=== PATIENT | male | born 1970 | race Caucasian/White ===

== ENCOUNTER 2021-03-11 10:34 | Outpatient (REF) | payer OTHER, SELFPAY ==
[2021-03-11 14:04] LABS: MANUAL DIFF FLAG NO
[2021-03-11 14:10] LABS: Basophils Percent Auto 0.5 % (0-2); Eosinophils Absolute Auto 0.2 X10*3/uL (0.0-0.4); Eosinophils Percent Auto 3.7 % (0-4); Hemoglobin 13.9 g/dl (14.0-18.0); Imm Gran Abs Auto 0.01 X10*3/uL (0.00-0.03); Imm Gran Pct Auto 0.2 % (0.0-0.4); Lymphocytes Absolute Auto 1.9 X10*3/uL (1.2-4.9); Mean Corpuscular HGB Conc 32.3 g/dl (31.0-36.0); Mean Corpuscular Hemoglobin 28.5 pg (27.0-33.0); Mean Corpuscular Volume 88.1 fL (80-98); Mean Platelet Volume 11.3 fL (9.4-12.4); Monocytes Absolute Auto 0.5 X10*3/uL (0.1-1.2); Monocytes Percent Auto 8.5 % (2-11); Neutrophils Absolute Auto 3.2 X10*3/uL (2.0-8.3); Neutrophils Percent Auto 54.1 % (45-73); Platelet Count 298 X10*3/uL (160-400); Red Blood Count 4.88 X10*6/uL (4.60-5.80); Red Cell Distribution Width 14.2 % (11.0-16.0); White Blood Count 5.9 X10*3/uL (4.8-10.8)
[2021-03-11 14:24] LABS: Alanine Aminotransferase 10 U/L (0-40); Albumin Level 4.4 g/dL (3.5-5.0); Alkaline Phosphatase 72 U/L (39-117); Anion Gap 13 (12-20); Aspartate Amino Transferase 19 U/L (5-37); Bilirubin Total 0.5 mg/dL (0.0-1.0); Blood Urea Nitrogen 16 mg/dL (9-16); Calcium 9.2 mg/dL (8.4-10.2); Carbon Dioxide 27 mmol/L (22-29); Chloride 106 mmol/L (96-108); Cholesterol 164 mg/dL; Estimated Glomerular Filt Rate > 60; Glucose Fasting 97 mg/dL (60-99); HDL Cholesterol 44 mg/dL; LDL Cholesterol Calculated 106 mg/dl; Potassium 4.7 mmol/L (3.3-5.1); Sodium 141 mmol/L (135-145); Total Protein 7.4 g/dL (6.5-8.0); Triglycerides 73 mg/dL
[2021-03-11 14:48] LABS: Free T4 (Free Thyroxine) 1.08 ng/dL (0.71-1.85); Thyroid Stimulating Hormone 3.19 uIU/mL (0.32-4.0)
[2021-03-18 16:30] LABS: Testosterone, Free 45.7 pg/mL (35.0-155.0); Testosterone, Total 251 ng/dL (250-1100)
== END 2021-03-11 10:35 | disposition home or self-care (01) ==
LOC: HO.HMGCLDS 10:34
PROVIDERS: PCP Internal Medicine; Visit Provider Internal Medicine
DX: E66.01 Morbid (severe) obesity due to excess calories (principal); F33.9 Major depressive disorder, recurrent, unspecified; E29.1 Testicular hypofunction; E03.9 Hypothyroidism, unspecified; E06.3 Autoimmune thyroiditis; R68.82 Decreased libido; Z68.41 Body mass index [BMI] 40.0-44.9, adult
CPT/HCPCS: 36415; 80053; 80061; 84402; 84403; 84439; 84443; 85025

== ENCOUNTER 2021-11-26 11:35 | Outpatient (REF) | payer OTHER, SELFPAY ==
[2021-11-26 14:27] LABS: Alanine Aminotransferase 13 U/L (0-40); Anion Gap 8 (12-20); Aspartate Amino Transferase 23 U/L (5-37); Blood Urea Nitrogen 15 mg/dL (9-16); Calcium 9.2 mg/dL (8.4-10.2); Carbon Dioxide 30 mmol/L (22-29); Chloride 106 mmol/L (96-108); Cholesterol 176 mg/dL; Estimated Glomerular Filt Rate > 60; Glucose Fasting 95 mg/dL (60-99); HDL Cholesterol 42 mg/dL; LDL Cholesterol Calculated 118 mg/dl; Potassium 4.7 mmol/L (3.3-5.1); Sodium 139 mmol/L (135-145); Triglycerides 81 mg/dL
[2021-11-26 14:36] LABS: Free T4 (Free Thyroxine) 0.93 ng/dL (0.71-1.85); Thyroid Stimulating Hormone 5.48 uIU/mL (0.32-4.0)
== END 2021-11-26 11:36 | disposition home or self-care (01) ==
LOC: HO.HMGCLDS 11:35
PROVIDERS: PCP Internal Medicine; Visit Provider Internal Medicine
DX: E06.3 Autoimmune thyroiditis (principal); E66.9 Obesity, unspecified; E03.9 Hypothyroidism, unspecified
CPT/HCPCS: 36415; 80048; 80061; 84439; 84443; 84450; 84460

== ENCOUNTER 2022-09-27 16:19 | Outpatient (REF) | payer OTHER, SELFPAY ==
[2022-10-07 18:39] LABS: Acetylcholine Recept. Blocking <15 (<15)
[2022-10-07 20:18] LABS: Acetylcholine Recep Modulating 20
[2022-10-12 20:29] LABS: Acetylcholine Receptor Binding <0.30 nmol/L
== END 2022-09-27 16:20 | disposition home or self-care (01) ==
LOC: HO.LAB 16:19
PROVIDERS: PCP Internal Medicine; Visit Provider Ophthalmology
DX: H16.102 Unspecified superficial keratitis, left eye (principal); H02.402 Unspecified ptosis of left eyelid
CPT/HCPCS: 36415; 83519

== ENCOUNTER 2022-12-09 14:17 | Outpatient (REF) | payer OTHER, SELFPAY ==
--- NOTE | ~2022-12-09 | XR_ITS ---
EXAMINATION: XR RIBS, LEFT, PA CHEST CLINICAL INFORMATION: Pleurodynia. COMPARISON: Chest radiographs dated 12/29/2010. TECHNIQUE: 3 views of the left ribs were obtained along with a PA view of the chest. A skin marker was placed over the inferior left ribs. FINDINGS: Lungs are clear. No consolidation, pneumothorax, or pleural effusion. The cardiomediastinal silhouette and pulmonary vasculature are normal. Deformity seen in the posterolateral left seventh rib. The remainder the ribs appear intact. The soft tissues are unremarkable. XR/XR ribs LT min 3V w CXR1V IMPRESSION: 1. No acute cardiopulmonary process. 2. Deformity in the posterolateral left seventh rib appears to represent an old healed fracture. Correlate with physical exam.
--- NOTE | ~2022-12-09 | XR_ITS ---
EXAMINATION: XR KNEE, LEFT CLINICAL INFORMATION: Left knee pain. COMPARISON: None available. TECHNIQUE: Four views of the left knee. FINDINGS: Bones and soft tissues are normal. No fracture or joint effusion. Alignment is anatomic. Joint spaces are well maintained. No abnormal soft tissue calcification. XR/XR knee LT 3V IMPRESSION: Unremarkable left knee.
== END 2022-12-09 14:18 | disposition home or self-care (01) ==
LOC: HO.HMGCX 14:17
PROVIDERS: Visit Provider Nurse Practitioner Family
DX: R07.81 Pleurodynia (principal); M25.562 Pain in left knee
CPT/HCPCS: 71101; 73562

== ENCOUNTER 2022-12-29 10:57 | Outpatient (REF) | payer OTHER, SELFPAY ==
--- NOTE | ~2022-12-29 | XR_ITS ---
EXAMINATION: XR KNEE, LEFT CLINICAL INFORMATION: Injury COMPARISON: Left knee 12/09/2022 TECHNIQUE: Four views of the left knee. FINDINGS: Bones and soft tissues are unremarkable. No fracture or joint effusion. Again seen is enthesopathy at the superior patella, unchanged. Alignment is anatomic. Joint spaces are well maintained. No abnormal soft tissue calcification. XR/XR knee LT 4V IMPRESSION: No evidence of an acute injury.
== END 2022-12-29 10:58 | disposition home or self-care (01) ==
LOC: HO.HMGCX 10:57
PROVIDERS: PCP Internal Medicine; Visit Provider Nurse Practitioner Family
DX: M25.562 Pain in left knee (principal); V29.99XA Rider (driver) (passenger) of other motorcycle injured in unspecified traffic accident, initial encounter
CPT/HCPCS: 73564

== ENCOUNTER 2022-12-31 07:47 | Outpatient (REF) | payer OTHER, SELFPAY ==
--- NOTE | ~2022-12-31 | XR_ITS ---
EXAMINATION: XR KNEE AP STANDING, BILATERAL XR KNEE, LEFT CLINICAL INFORMATION: Knee pain COMPARISON: Left knee 12/09/2022 TECHNIQUE: AP bilateral standing view of the knees were obtained. [place] view obtained of the left knee. Additional images of the left knee were described under a separate report. FINDINGS: LEFT KNEE AP STANDING AND SUNRISE VIEWS: Redemonstration of enthesopathy at the superior patella, unchanged. Mild medial joint space narrowing and tiny medial marginal osteophytes. RIGHT KNEE SINGLE AP VIEW: Minimal medial joint space narrowing and tiny medial marginal osteophytes. XR/XR knee LT 1V IMPRESSION: Mild degenerative changes. Additional imaging with CT scan or MRI should be considered for better visualization as these modalities are much more sensitive for detection of fracture or other underlying pathology.
--- NOTE | ~2022-12-31 | XR_ITS ---
EXAMINATION: XR KNEE AP STANDING, BILATERAL XR KNEE, LEFT CLINICAL INFORMATION: Knee pain COMPARISON: Left knee 12/09/2022 TECHNIQUE: AP bilateral standing view of the knees were obtained. [place] view obtained of the left knee. Additional images of the left knee were described under a separate report. FINDINGS: LEFT KNEE AP STANDING AND SUNRISE VIEWS: Redemonstration of enthesopathy at the superior patella, unchanged. Mild medial joint space narrowing and tiny medial marginal osteophytes. RIGHT KNEE SINGLE AP VIEW: Minimal medial joint space narrowing and tiny medial marginal osteophytes. XR/XR knee standing BI IMPRESSION: Mild degenerative changes. Additional imaging with CT scan or MRI should be considered for better visualization as these modalities are much more sensitive for detection of fracture or other underlying pathology.
== END 2022-12-31 07:48 | disposition home or self-care (01) ==
LOC: HO.HOSX 07:47
PROVIDERS: Visit Provider Physician Assistant
DX: M17.12 Unilateral primary osteoarthritis, left knee (principal)
CPT/HCPCS: 20610; 73560; 73565; 99202; J1040

== ENCOUNTER 2023-01-31 08:55 | Outpatient (AMB) | payer OTHER, SELFPAY ==
--- NOTE | 2023-01-31 09:11 | MHC.OFFWIV ---
Intake Vital Signs 01/31/23 09:15 BP 100/64 Blood Pressure Location Rt brachial Position Sitting Pulse 61 Pulse Source Pulse Oximeter Temp 97.9 F Temp Source Oral Pulse Oximetry (%) 97 Oxygen Delivery Method Room Air Intake Visit Reasons: EST/Work forms, Ok per B.O Intake Note: Pt is here today needs to be clear to go back to work, pt has form Patient Tobacco Use Status: Never used Tobacco Allergies ibuprofen Adverse Reaction (Verified 01/31/23 09:52) Gastrointestinal Upset Medication List - Last Reconciled 01/31/23 by Luis Felipe Ny MD aspirin 81 mg PO DAILY atorvastatin 40 mg PO DAILY buspirone 5 mg PO TID cyclobenzaprine 10 mg PO BEDTIME gabapentin 300 mg PO BID isosorbide mononitrate ER 30 mg PO QAM levothyroxine Take 200mcg Tuesday thru Tuesday and 400mcg on Tuesday orally daily; 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 His primary care physician is away and he was asked to come here to get his documentation filled out. Patient had a work related injury on 01/25/2023. 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 In the process he injured his right knee. Patient was seen in the emergency room and is on the road to recovery. He needs to return to work with restrictions. Though he is scheduled to work for 8 hours patient works 12 hour shifts. He feels he is unable to do that at this moment. 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 Loss of libido Major depression Major depression in full remission Morbid obesity with BMI of 40.0-44.9, adult Obesity Obstructive sleep apnea Presence of stent in coronary artery in patient with coronary artery disease Testicular hypofunction Tinea cruris Surgical History H/O hernia repair History of gastric bypass History of heart artery stent Family History Mother Mental health disorder Sister Mental health disorder Social History Housing: House Patient Tobacco Use Status: Never used Tobacco e-Cigarette/Vaping Use: Never Used Second Hand Smoke Exposure: No service: No Current occupational status: employed 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 Full range of motion. Assessment & Plan Assessment & Plan (1) Right knee sprain: Code(s): S83.91XA - Sprain of unspecified site of right knee, initial encounter Plan: Continue current medications. Patient was given a note that allowed him to work for 8 hours. He will have a follow-up appointment on next Tuesday. Coding Level of Care Code Est Pt Level 3 (28956) Diagnoses Right knee sprain S83.91XA
[2023-01-31 09:15] VITALS: BP 100/64; PULSE 61; TEMP 36.6; O2SAT 97
== END 2023-01-31 10:06 | disposition home or self-care (01) ==
PROVIDERS: PCP Internal Medicine; Visit Provider Internal Medicine
DX: S83.91XA Sprain of unspecified site of right knee, initial encounter (principal); Z04.2 Encounter for examination and observation following work accident
CPT/HCPCS: 99213

== ENCOUNTER 2023-02-08 13:03 | Outpatient (AMB) | payer OTHER, SELFPAY ==
--- NOTE | 2023-02-08 13:05 | A.OFFPC_ITS ---
Vital Signs 02/08/23 13:07 Height 6 ft 2 in Weight 294 lb BMI 37.7 BP 120/74 Blood Pressure Location Rt brachial Position Sitting Pulse 55 Pulse Source Pulse Oximeter Pulse Oximetry (%) 98 Oxygen Delivery Method Room Air Intake Visit Reasons: Needs to be cleared for work Intake Note: Pt is here today to be clear for work: Rt knee and Lt wrist improved and is able to work 8hr days Allergies ibuprofen Adverse Reaction (Verified 02/08/23 13:47) Gastrointestinal Upset Medication List - Last Reconciled 02/08/23 by Dana Lyons MD aspirin 81 mg PO DAILY atorvastatin 40 mg PO DAILY buspirone 5 mg PO TID gabapentin 300 mg PO BID isosorbide mononitrate ER 30 mg PO QAM levothyroxine Take 200mcg Tuesday thru Tuesday and 400mcg on Tuesday orally daily; 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 Patient states that he is feeling much better, no joint pain or swelling, able to walk without any pain or limp. He also recently got in contact with some poison chris while cleaning his yd and now has pruritic rash on both arms. Has been applying calamine lotion which affords only temporary relief. He also complains of recurrent swelling and diffuse redness in both lower extremities, when the weather is very hot. His episodes usually cause some discomfort and pain in both lower extremities, usually resolves with leg elevation. 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 Loss of libido Major depression Major depression in full remission Morbid obesity with BMI of 40.0-44.9, adult Obesity Obstructive sleep apnea Presence of stent in coronary artery in patient with coronary artery disease Redness and swelling of lower leg Testicular hypofunction Tinea cruris Surgical History H/O hernia repair History of gastric bypass History of heart artery stent Family History Mother Mental health disorder Sister Mental health disorder Social History Housing: House Patient Tobacco Use Status: Tobacco use Unknown e-Cigarette/Vaping Use: Never Used Second Hand Smoke Exposure: No service: No Current occupational status: employed 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 Kye Odell, Sangeetha Obrien, Ranjan Ni and colleagues, with an educational gege from [employer]. Review of Systems Const All systems reviewed & are unremarkable except as noted in HPI and below ENT Reports no additional complaints Card Denies chest pain, Denies syncope, Denies rapid heart rate, Denies irregular heart rhythm and Denies lightheadedness Resp Reports no additional complaints GI Reports no additional complaints Reports no additional complaints Musc Reports no additional complaints Skin/Breast Reports as per HPI Neuro Denies Neuro-related abnormal movements, Denies Abnormal speech present, Reports burning sensations (Both lower extremities worse when the weather is hot), Denies confusion and Denies syncope Psych Denies confusion Physical exam (Primary Care) Vital Signs: Last Vital Signs Pulse 55 02/08/23 13:07 BP 120/74 02/08/23 13:07 Pulse Ox 98 02/08/23 13:07 Oxygen Delivery Method Room Air 02/08/23 13:07 BMI result Body Mass Index 37.7 Tobacco/Smoking Status: Tobacco use Status Tobacco use date assessed 02/08/23 02/08/23 13:13 Patient Tobacco Use Status Tobacco use Unknown 02/08/23 13:13 e-Cigarette/Vaping Use Never Used 02/08/23 13:05 Thrive Assessment: Date of Thrive Assessment Date Thrive assessed 05/28/22 02/08/23 13:05 Const General: No confusion Orientation/consciousness: No confusion Skin Other: Dry erythematous patch on both forearms Neuro General: No confusion Speech: No Abnormal speech present Extrem Other: Trace ankle edema on right, no calf tenderness, no gross bone deformity or joint swelling seen. Assessment and Plan Assessment & Plan (1) Redness and swelling of lower leg: Code(s): M79.89 - Other specified soft tissue disorders; R23.8 - Other skin changes Plan: Ordered venous Doppler ultrasound of both lower extremities to check for venous insufficiency. Patient advised to wear travel compression socks when at work and when on his feet event leg swelling. Elevate legs as much as possible when he gets a chance, who socks before going to bed. (2) Acute irritant contact dermatitis: Code(s): L24.9 - Irritant contact dermatitis, unspecified cause Plan: Prescription sent for triamcinolone acetonide cream 0.1% to apply sparingly to affected areas once a day for no more than 10 days at a time. Copy continue applying calamine lotion and may take [id number] Claritin or Zyrtec as needed for itching. (3) History of sprain of knee: Code(s): Z87.828 - Personal history of other (healed) physical injury and trauma Plan: Patient has fully recovered, work note given clearing him to go back to work without restriction Orders: Orders US venous duplex LE BI 02/08/23 M79.89 - Other specified soft tissue disorders, R23.8 - Other skin changes Medications: New triamcinolone acetonide 0.1% 1 appl topical DAILY 10 days 30 grams 0RF Coding Level of Care Code Est Pt Level 3 (90318) Diagnoses Redness and swelling of lower leg M79.89; R23.8 Acute irritant contact dermatitis L24.9 History of sprain of knee Z87.828
[2023-02-08 13:07] VITALS: BP 120/74; PULSE 55; O2SAT 98; BMI 37.7
== END 2023-02-08 14:32 | disposition home or self-care (01) ==
PROVIDERS: PCP Internal Medicine; Visit Provider Internal Medicine
DX: M79.89 Other specified soft tissue disorders (principal); R23.8 Other skin changes; L24.9 Irritant contact dermatitis, unspecified cause; Z87.828 Personal history of other (healed) physical injury and trauma
CPT/HCPCS: 99213

== ENCOUNTER 2023-09-07 13:44 | Outpatient (AMB) | payer OTHER, SELFPAY ==
[2023-09-07 13:44] VITALS: BP 150/78; PULSE 60; TEMP 36.5; O2SAT 98; BMI 34.5
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
== END 2023-09-07 17:06 | disposition home or self-care (01) ==
PROVIDERS: PCP Internal Medicine; Visit Provider Nurse Practitioner Family
DX: M17.12 Unilateral primary osteoarthritis, left knee (principal)
CPT/HCPCS: 99213

== ENCOUNTER 2023-09-22 10:10 | Outpatient (AMB) | payer OTHER, SELFPAY ==
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
[2023-09-22 10:51] VITALS: BMI 34.5
== END 2023-09-22 13:28 | disposition home or self-care (01) ==
PROVIDERS: PCP Internal Medicine; Visit Provider Physician Assistant
DX: M17.12 Unilateral primary osteoarthritis, left knee (principal)
CPT/HCPCS: 20610; 99213

== ENCOUNTER → 2023-09-22 10:10 | Outpatient (BNVA) | payer OTHER, SELFPAY | PROVIDERS: PCP Internal Medicine; Visit Provider Physician Assistant | DX: M25.562 Pain in left knee (principal); M17.12 Unilateral primary osteoarthritis, left knee | CPT/HCPCS: 20610; 99212; J1040 ==

== ENCOUNTER 2023-10-13 19:12 | Outpatient (REF) | payer OTHER, SELFPAY ==
--- NOTE | ~2023-10-13 | MR_ITS ---
EXAMINATION: MR KNEE WITHOUT CONTRAST, LEFT CLINICAL INFORMATION: Left knee pain. COMPARISON: Radiographs 12/31/2022. TECHNIQUE: MRI of the knee without contrast was performed using routine sequences on a high-field scanner. FINDINGS: MENISCI: Medial Meniscus: Intact Lateral Meniscus: Intact LIGAMENTS: Cruciate: Intact Collateral: Intact semimembranosus tendinopathy with ill-defined partial tearing at the tibial attachment with adjacent soft tissue edema which extends distally deep to the pes anserinus. EXTENSOR MECHANISM: Intact. Enthesopathy of the superior pole of the patella. ARTICULAR CARTILAGE/BONE: Patellofemoral Compartment: Mild cartilage thinning and surface irregularity of the central patella. More diffuse cartilage thinning and irregularity along the central trochlea. Small marginal osteophytes. Medial Compartment: Cartilage thinning and mild surface irregularity throughout the weightbearing aspect with marginal osteophytes. Lateral Compartment: Small marginal osteophytes. JOINT FLUID AND BURSAE: Small joint effusion and trace Saenz's cyst. MR/MR knee LT wo con IMPRESSION: 1. Semimembranosus tendinopathy with ill-defined partial tearing at the tibial insertion. Adjacent edema and trace fluid extends distally deep to the pes anserinus. 2. No meniscal tear. 3. Mild tricompartmental osteoarthritis with a small joint effusion and trace Saenz's cyst.
== END 2023-10-13 19:13 | disposition home or self-care (01) ==
LOC: HO.MRI 19:12
PROVIDERS: PCP Internal Medicine; Visit Provider Physician Assistant
DX: M17.12 Unilateral primary osteoarthritis, left knee (principal)
CPT/HCPCS: 73721

== ENCOUNTER 2023-10-26 10:40 | Outpatient (AMB) | payer OTHER, SELFPAY ==
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
== END 2023-10-26 11:35 | disposition home or self-care (01) ==
PROVIDERS: PCP Internal Medicine; Visit Provider Physician Assistant
DX: M17.12 Unilateral primary osteoarthritis, left knee (principal); M70.52 Other bursitis of knee, left knee
CPT/HCPCS: 20610; 99213

== ENCOUNTER → 2023-10-26 10:40 | Outpatient (BNVA) | payer OTHER, SELFPAY | PROVIDERS: PCP Internal Medicine; Visit Provider Physician Assistant | DX: M17.12 Unilateral primary osteoarthritis, left knee (principal); M70.52 Other bursitis of knee, left knee | CPT/HCPCS: 20610; 99212; J1100 ==

== ENCOUNTER 2024-08-22 12:53 | Outpatient (AMB) | payer OTHER, SELFPAY ==
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
[2024-08-22 13:42] VITALS: BP 130/78; PULSE 76; TEMP 36.5; O2SAT 97; BMI 34.5
== END 2024-08-22 14:44 | disposition home or self-care (01) ==
PROVIDERS: PCP Internal Medicine; Visit Provider Physician Assistant
DX: J32.9 Chronic sinusitis, unspecified (principal); B96.89 Other specified bacterial agents as the cause of diseases classified elsewhere

== ENCOUNTER → 2024-08-22 12:53 | Outpatient (BNVA) | payer OTHER, SELFPAY | PROVIDERS: PCP Internal Medicine | DX: J32.9 Chronic sinusitis, unspecified (principal); B96.89 Other specified bacterial agents as the cause of diseases classified elsewhere | CPT/HCPCS: 99212 ==

== ENCOUNTER 2024-09-12 12:57 | Outpatient (REF) | payer OTHER, SELFPAY ==
--- OUTSIDE RECORDS SUMMARY | 2024-09-12 15:16 | XMS_ITS | Continuity of Care Document ---
Author Organization [facility] Address [address] [place] [address] Insurance Providers Payer Plan Claims Address Claims Phone Policy Number Group Number Relation Employer Guarantor Name Guarantor Guarantor Address Guarantor Phone [employer] [place] [address], [place] [id number] Self Justice Son 1970 [address], [place] [id number] Problems Unknown Problems Results No Results Allergies, adverse reactions, alerts No known allergies and adverse reactions Medications Medication Instructions Route Dosage Frequency Start Date Stop Date Indications Status omeprazole 40 MG Delayed Release Oral Capsule 09/09/19 25 01:49 PM 025 01:49 PM Active amoxicillin 875 MG Oral Tablet 09/09/19 25 01:49 PM 025 01:49 PM Active sildenafil 100 MG Oral Tablet 09/09/19 25 01:49 PM 025 01:49 PM Active escitalopram 10 MG Oral Tablet 09/09/19 25 01:49 PM 025 01:49 PM Active amoxicillin 875 MG / clavulanate 125 MG Oral Tablet 09/09/19 25 01:49 PM 025 01:49 PM Active atorvastatin 40 MG Oral Tablet 09/09/19 25 01:49 PM 025 01:49 PM Active 1 ML testosterone cypionate 200 MG/ML Injection 09/09/19 25 01:49 PM 025 01:49 PM Active Vital Signs No vital signs reported Social History No smoking Hx information available
[2024-09-12 16:08] LABS: MANUAL DIFF FLAG NO
[2024-09-12 16:28] LABS: Basophils Percent Auto 0.7 % (0-2); Eosinophils Absolute Auto 0.3 X10*3/uL (0.0-0.4); Eosinophils Percent Auto 4.8 % (0-4); Hematocrit 43.5 % (42.0-52.0); Hemoglobin 14.2 g/dl (14.0-18.0); Imm Gran Abs Auto 0.02 X10*3/uL (0.00-0.03); Imm Gran Pct Auto 0.4 % (0.0-0.4); Lymphocytes Absolute Auto 1.5 X10*3/uL (1.2-4.9); Lymphocytes Percent Auto 26.2 % (20-40); Mean Corpuscular HGB Conc 32.6 g/dl (31.0-36.0); Mean Corpuscular Hemoglobin 28.7 pg (27.0-33.0); Mean Corpuscular Volume 88.1 fL (80.0-98.0); Mean Platelet Volume 10.9 fL (9.4-12.4); Monocytes Absolute Auto 0.5 X10*3/uL (0.1-1.2); Monocytes Percent Auto 8.7 % (2-11); Neutrophils Absolute Auto 3.3 x10*3/uL (2.0-8.3); Neutrophils Percent Auto 59.2 % (45-73); Platelet Count 263 X10*3/uL (160-400); Red Blood Count 4.94 X10*6/uL (4.60-5.80); Red Cell Distribution Width 14.5 % (11.0-16.0); White Blood Count 5.6 X10*3/uL (4.8-10.8)
[2024-09-12 17:10] LABS: Folate 12.4 ng/mL (> or = 4.0); Vitamin B12 319 pg/mL (200-900)
[2024-09-12 17:13] LABS: Alanine Aminotransferase 17 U/L (0-40); Anion Gap 10 (12-20); Aspartate Amino Transferase 34 U/L (5-37); Blood Urea Nitrogen 14 mg/dL (9-16); Calcium 9.2 mg/dL (8.4-10.2); Carbon Dioxide 27 mmol/L (22-29); Chloride 107 mmol/L (96-108); Cholesterol 123 mg/dL (<200); Estimated Glomerular Filt Rate > 60; Glucose Fasting 100 mg/dL (60-99); HDL Cholesterol 53 mg/dL (>40); LDL Cholesterol Calculated 59 mg/dL (<100); Potassium 4.6 mmol/L (3.3-5.1); Sodium 139 mmol/L (135-145); Triglycerides 55 mg/dL (<150)
[2024-09-12 17:29] LABS: Free T4 (Free Thyroxine) 0.96 ng/dL (0.71-1.85); Thyroid Stimulating Hormone 2.33 uIU/mL (0.32-4.0); Vitamin D 25-OH Total 28.8 ng/mL (>30)
[2024-09-14 12:53] LABS: Thyroid Peroxidase Antibodies 27 IU/mL (<9)
== END 2024-09-12 12:58 | disposition home or self-care (01) ==
LOC: HO.HMGCLDS 12:57
PROVIDERS: PCP Internal Medicine; Visit Provider Internal Medicine
DX: I25.10 Atherosclerotic heart disease of native coronary artery without angina pectoris (principal); Z98.84 Bariatric surgery status; E06.3 Autoimmune thyroiditis; Z95.5 Presence of coronary angioplasty implant and graft; E66.01 Morbid (severe) obesity due to excess calories; Z68.41 Body mass index [BMI] 40.0-44.9, adult
CPT/HCPCS: 36415; 80048; 80061; 82306; 82607; 82746; 84439; 84443; 84450; 84460; 85025; 86376

== ENCOUNTER 2024-09-19 13:13 | Outpatient (AMB) | payer OTHER, SELFPAY ==
[2024-09-19 13:19] VITALS: BP 110/72; PULSE 78; RESP 16; TEMP 36.7; O2SAT 97; BMI 36.2
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
== END 2024-09-19 14:05 | disposition home or self-care (01) ==
LOC: HO.HMCC 13:14
PROVIDERS: PCP Internal Medicine; Visit Provider Internal Medicine
DX: J01.00 Acute maxillary sinusitis, unspecified (principal); J31.0 Chronic rhinitis; F33.41 Major depressive disorder, recurrent, in partial remission; Z80.0 Family history of malignant neoplasm of digestive organs; Z12.11 Encounter for screening for malignant neoplasm of colon; E06.3 Autoimmune thyroiditis; I25.10 Atherosclerotic heart disease of native coronary artery without angina pectoris; E55.9 Vitamin D deficiency, unspecified

== ENCOUNTER → 2024-09-19 13:13 | Outpatient (BNVA) | payer OTHER, SELFPAY | PROVIDERS: PCP Internal Medicine; Visit Provider Internal Medicine | DX: J01.00 Acute maxillary sinusitis, unspecified (principal); J31.0 Chronic rhinitis; E06.3 Autoimmune thyroiditis; I25.10 Atherosclerotic heart disease of native coronary artery without angina pectoris; F33.41 Major depressive disorder, recurrent, in partial remission; E55.9 Vitamin D deficiency, unspecified; Z80.0 Family history of malignant neoplasm of digestive organs | CPT/HCPCS: 96127; 99212 ==

== ENCOUNTER 2024-10-10 13:53 | Outpatient (AMB) | payer OTHER, SELFPAY ==
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
[2024-10-10 15:03] VITALS: BP 112/70; PULSE 69; O2SAT 98; BMI 37.4
== END 2024-10-10 15:59 | disposition home or self-care (01) ==
PROVIDERS: PCP Internal Medicine; Visit Provider Physician Assistant
DX: J06.9 Acute upper respiratory infection, unspecified (principal)

== ENCOUNTER → 2024-10-10 13:53 | Outpatient (BNVA) | payer OTHER, SELFPAY | PROVIDERS: PCP Internal Medicine; Visit Provider Physician Assistant | DX: J06.9 Acute upper respiratory infection, unspecified (principal) | CPT/HCPCS: 99212 ==

== ENCOUNTER 2025-03-28 06:14 | Outpatient (REF) | payer OTHER, SELFPAY ==
[2025-03-28 09:20] LABS: Alanine Aminotransferase 14 U/L (0-40); Anion Gap 10 (12-20); Aspartate Amino Transferase 34 U/L (5-37); Blood Urea Nitrogen 14 mg/dL (9-16); Calcium 8.7 mg/dL (8.4-10.2); Carbon Dioxide 26 mmol/L (22-29); Chloride 109 mmol/L (96-108); Cholesterol 116 mg/dL (<200); Estimated Glomerular Filt Rate > 60; Free T4 (Free Thyroxine) 1.09 ng/dL (0.71-1.85); HDL Cholesterol 43 mg/dL (>40); Potassium 3.9 mmol/L (3.3-5.1); Sodium 141 mmol/L (135-145); Thyroid Stimulating Hormone 0.62 uIU/mL (0.32-4.0); Triglycerides 50 mg/dL (<150)
== END 2025-03-28 06:15 | disposition home or self-care (01) ==
LOC: HO.HMGCLDS 06:14
PROVIDERS: PCP Internal Medicine; Visit Provider Internal Medicine
DX: F32.9 Major depressive disorder, single episode, unspecified (principal); I25.10 Atherosclerotic heart disease of native coronary artery without angina pectoris; F32.5 Major depressive disorder, single episode, in full remission; E06.3 Autoimmune thyroiditis
CPT/HCPCS: 36415; 80048; 80061; 82306; 84439; 84443; 84450; 84460; 86376

== ENCOUNTER 2025-04-03 10:07 | Outpatient (AMB) | payer OTHER, SELFPAY ==
[2025-04-03 10:20] VITALS: BP 116/68; PULSE 87; RESP 16; TEMP 36.7; O2SAT 97; BMI 37.7
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
== END 2025-04-03 11:15 | disposition home or self-care (01) ==
PROVIDERS: PCP Internal Medicine; Visit Provider Internal Medicine
DX: Z00.01 Encounter for general adult medical examination with abnormal findings (principal); L98.9 Disorder of the skin and subcutaneous tissue, unspecified; F32.5 Major depressive disorder, single episode, in full remission; E29.1 Testicular hypofunction; E06.3 Autoimmune thyroiditis; J31.0 Chronic rhinitis; G47.33 Obstructive sleep apnea (adult) (pediatric); L30.4 Erythema intertrigo; N52.9 Male erectile dysfunction, unspecified; Z71.89 Other specified counseling; I25.10 Atherosclerotic heart disease of native coronary artery without angina pectoris

== ENCOUNTER → 2025-04-03 10:07 | Outpatient (BNVA) | payer OTHER, SELFPAY | PROVIDERS: PCP Internal Medicine; Visit Provider Internal Medicine | DX: Z00.01 Encounter for general adult medical examination with abnormal findings (principal); L98.9 Disorder of the skin and subcutaneous tissue, unspecified; F32.5 Major depressive disorder, single episode, in full remission; E29.1 Testicular hypofunction; E06.3 Autoimmune thyroiditis; J31.0 Chronic rhinitis; G47.33 Obstructive sleep apnea (adult) (pediatric); L30.4 Erythema intertrigo; N52.9 Male erectile dysfunction, unspecified; I25.10 Atherosclerotic heart disease of native coronary artery without angina pectoris; Z79.82 Long term (current) use of aspirin; Z79.899 Other long term (current) drug therapy; Z71.89 Other specified counseling; Z13.31 Encounter for screening for depression | CPT/HCPCS: 96127; 99396 ==

== ENCOUNTER → 2025-06-28 15:08 | Outpatient (RCR) | payer OTHER, SELFPAY ==
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
== END | disposition home or self-care (01) ==
LOC: HO.PT 11-17 13:02
PROVIDERS: PCP Internal Medicine; Visit Provider Physician Assistant
DX: M70.52 Other bursitis of knee, left knee (principal); M17.12 Unilateral primary osteoarthritis, left knee
CPT/HCPCS: 97014; 97035; 97110; 97140; 97161